=== PATIENT | male | born 1990 | race American Indian/Alaskan Native ===

== ENCOUNTER 2021-06-13 20:20 | Inpatient (IN) | payer SELFPAY ==
--- NOTE | 2021-06-13 21:06 | Emergency Department Report ---
HPI - General Chief Complaint: Chest Pain Time Seen by Provider: 06/13/21 20:52 - HPI HPI: 31-year-old male with history of asthma and recently diagnosed with prediabetes presents complaining of mid substernal chest pain since yesterday. He says the pain is constant, radiates towards the left side of his chest and left shoulder. He describes it as aching. He also reports epigastric abdominal pain. The pain is worsened by taking a deep breath. It is worsened by leaning forward. It is somewhat improved by bearing down to go to the bathroom he took 81 mg of aspirin this morning. 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 He denies any associated headache, vision change, fever, back pain, cough, shortness of breath, nausea/vomiting, focal weakness, sensory changes, or any other complaints. He is not vaccinated against COVID-19. ED Past Medical Hx - Past Medical History Previous Medical History?: Yes Hx Asthma: Yes Additional medical history: Pre Diabetic - Surgical History Hx Appendectomy: Yes Additional Surgical History: nose - Family History Family history: no significant - Social History Smoking Status: Never Smoker Substance Use Type: None Other Social History: Drinks four 20 ounce red bull drinks per day. ED Review of Systems ROS: Stated complaint: CHEST/STOMACH PAIN Other details as noted in HPI Comment: All other systems reviewed and negative Constitutional: denies: chills, fever Eyes: denies: eye pain, vision change ENT: denies: throat pain, congestion Respiratory: denies: cough, shortness of breath Cardiovascular: chest pain. denies: palpitations, edema Gastrointestinal: abdominal pain. denies: nausea, vomiting, diarrhea Genitourinary: denies: dysuria, frequency Musculoskeletal: denies: back pain, arthralgia Skin: denies: rash, lesions Neurological: denies: headache, weakness, numbness, confusion Hematological/Lymphatic: denies: easy bleeding Physical Exam - Physical Exam Vital Signs: Vital Signs 06/13/21 20:48 Temperature 98.2 F Pulse Rate 95 H Respiratory 20 Rate Blood Pressure 152/95 O2 Sat by Pulse 99 Oximetry Physical Exam: GENERAL: Obese male in moderate distress. Diaphoretic. HEAD: Normocephalic. No obvious signs of trauma. ENT: Moist mucous membranes. EYES: Extraocular movements are intact. Pupils are equal round and reactive to light bilaterally NECK: Supple. Full ROM is intact. Trachea is midline. LUNGS: Tachypneic but not in respiratory distress. Equal chest rise bilaterally. Clear to auscultation bilaterally. I do not appreciate any wheezes, rales, or rhonchi. CARDIOVASCULAR: Regular rate and rhythm. No murmurs or rubs. VASCULAR: Cap refill < 2 seconds ABDOMEN: Abdomen is soft and nondistended. There is significant tenderness to palpation of the epigastrium with voluntary guarding. There is no involuntary guarding or rebound tenderness. SKIN: Skin is warm and diaphoretic NEURO: Patient is awake, alert, and oriented. inside sales supervisor II-XII grossly intact. No focal deficits. Normal motor and sensory exam throughout. Normal speech. MUSCULOSKELETAL: No obvious deformities. No significant tenderness. Normal ROM throughout. BACK/SPINE: No costovertebral angle tenderness. ED Course Vital Signs 06/13/21 20:48 Temperature 98.2 F Pulse Rate 95 H Respiratory 20 Rate Blood Pressure 152/95 O2 Sat by Pulse 99 Oximetry ED Medical Decision Making - Lab Data Result diagrams: 06/13/21 22:39 06/13/21 21:08 Lab Results 06/13/21 06/13/21 06/13/21 Range/Units 21:08 21:08 21:08 WBC 10.0 (4.5-11.0) K/mm3 RBC 6.24 H (3.65-5.03) M/mm3 Hgb 15.0 (11.8-15.2) gm/dl Hct 47.9 H (35.5-45.6) % MCV 77 L (84-94) fl MCH 24 L (28-32) pg MCHC 31 L (32-34) % RDW 16.7 H (13.2-15.2) % Plt Count 190 (140-440) K/mm3 Baso % (Auto) [employer] Police Officer PT 12.7 (12.2-14.9) Sec. INR 0.86 L (0.87-1.13) APTT 24.5 (24.2-36.6) Sec. D-Dimer 211.70 (0-234) ng/mlDDU Sodium 136 L (137-145) mmol/L Potassium 3.8 (3.6-5.0) mmol/L Chloride 99.7 (98-107) mmol/L Carbon Dioxide 23 (22-30) mmol/L Anion Gap 17 mmol/L BUN 7 L (9-20) mg/dL Creatinine 1.3 (0.8-1.3) mg/dL Estimated GFR > 60 ml/min BUN/Creatinine Ratio 5 % Glucose 96 (75-100) mg/dL Calcium 9.6 (8.4-10.2) mg/dL Magnesium (1.7-2.3) mg/dL Total Bilirubin (0.1-1.2) mg/dL Direct Bilirubin (0-0.2) mg/dL Indirect Bilirubin mg/dL AST (5-40) units/L ALT (7-56) units/L Alkaline Phosphatase (35-129) units/L Troponin T 0.619 H* (0.00-0.029) ng/mL NT-Pro-B Natriuret Pep (0-450) pg/mL Total Protein (6.3-8.2) g/dL Albumin (3.9-5) g/dL Albumin/Globulin Ratio % Triglycerides 114 (2-149) mg/dL Cholesterol 245 H (50-199) mg/dL LDL Cholesterol Direct 178 H (50-130) mg/dL HDL Cholesterol 48 (40-59) mg/dL Cholesterol/HDL Ratio 5.10 % Lipase 33 (13-60) units/L 06/13/21 06/13/21 06/13/21 Range/Units 21:08 22:39 22:39 WBC (4.5-11.0) K/mm3 RBC (3.65-5.03) M/mm3 Hgb 14.7 (11.8-15.2) gm/dl Hct 45.9 H (35.5-45.6) % MCV (84-94) fl MCH (28-32) pg MCHC (32-34) % RDW (13.2-15.2) % Plt Count 177 (140-440) K/mm3 Baso % (Auto) PT (12.2-14.9) Sec. INR (0.87-1.13) APTT (24.2-36.6) Sec. D-Dimer (0-234) ng/mlDDU Sodium (137-145) mmol/L Potassium (3.6-5.0) mmol/L Chloride (98-107) mmol/L Carbon Dioxide (22-30) mmol/L Anion Gap mmol/L BUN (9-20) mg/dL Creatinine (0.8-1.3) mg/dL Estimated GFR ml/min BUN/Creatinine Ratio % Glucose (75-100) mg/dL Calcium (8.4-10.2) mg/dL Magnesium 1.80 (1.7-2.3) mg/dL Total Bilirubin 0.50 (0.1-1.2) mg/dL Direct Bilirubin < 0.2 (0-0.2) mg/dL Indirect Bilirubin 0.3 mg/dL AST 34 (5-40) units/L ALT 36 (7-56) units/L Alkaline Phosphatase 58 (35-129) units/L Troponin T 0.616 H* (0.00-0.029) ng/mL NT-Pro-B Natriuret Pep 384.4 (0-450) pg/mL Total Protein 6.9 (6.3-8.2) g/dL Albumin 4.5 (3.9-5) g/dL Albumin/Globulin Ratio 1.9 % Triglycerides (2-149) mg/dL Cholesterol (50-199) mg/dL LDL Cholesterol Direct (50-130) mg/dL HDL Cholesterol (40-59) mg/dL Cholesterol/HDL Ratio % Lipase (13-60) units/L // Range/Units 22:39 WBC (4.5-11.0) K/mm3 RBC (3.65-5.03) M/mm3 Hgb (11.8-15.2) gm/dl Hct (35.5-45.6) % MCV (84-94) fl MCH (28-32) pg MCHC (32-34) % RDW (13.2-15.2) % Plt Count (140-440) K/mm3 Baso % (Auto) PT 12.8 (12.2-14.9) Sec. INR 0.87 (0.87-1.13) APTT 25.0 (24.2-36.6) Sec. D-Dimer (0-234) ng/mlDDU Sodium (137-145) mmol/L Potassium (3.6-5.0) mmol/L Chloride (98-107) mmol/L Carbon Dioxide (22-30) mmol/L Anion Gap mmol/L BUN (9-20) mg/dL Creatinine (0.8-1.3) mg/dL Estimated GFR ml/min BUN/Creatinine Ratio % Glucose (75-100) mg/dL Calcium (8.4-10.2) mg/dL Magnesium (1.7-2.3) mg/dL Total Bilirubin (0.1-1.2) mg/dL Direct Bilirubin (0-0.2) mg/dL Indirect Bilirubin mg/dL AST (5-40) units/L ALT (7-56) units/L Alkaline Phosphatase (35-129) units/L Troponin T (0.00-0.029) ng/mL NT-Pro-B Natriuret Pep (0-450) pg/mL Total Protein (6.3-8.2) g/dL Albumin (3.9-5) g/dL Albumin/Globulin Ratio % Triglycerides (2-149) mg/dL Cholesterol (50-199) mg/dL LDL Cholesterol Direct (50-130) mg/dL HDL Cholesterol (40-59) mg/dL Cholesterol/HDL Ratio % Lipase (13-60) units/L - EKG Data -: EKG Interpreted by Or - EKG Data 06/14/21 00:20 Normal sinus rhythm. Normal axis. Normal intervals. No ectopy. There is approximately [address] elevation noted in leads II, III, and aVF and [address] elevation in V3-V5. There are no clear reciprocal changes noted. There are no significant T wave changes. In discussion with assembler dry cell and battery Dr. Yoandy Izaguirre does not represent STEMI - Radiology Data Radiology results: report reviewed - Medical Decision Making 31-year-old male with history of asthma presents complaining of mid substernal chest pain since yesterday. The pain is constant, worsened by taking a deep breath or leaning forward. It is partially relieved by bearing down to go to the bathroom. He denies any associated shortness of breath, cough, fever, or other ACS symptoms. He is afebrile and with normal vital signs other than mildly elevated blood pressure in the 150 systolic. On physical examination, he is in moderate distress and is diaphoretic and tachypneic. Lungs are clear to auscultation. He has significant tenderness to palpation in the epigastrium. There are no other significant abnormalities on exam. His EKG was obtained in triage and appears to show ST elevations in the inferior and some of the lateral leads but there are no obvious reciprocal changes. I immediately spoke with Dr. Izaguirre, the judicial clerk on-call who reviewed the EKG and states it does not represent a STEMI but that he recommends full work-up with troponins and scans as deemed necessary. Although the EKG abnormalities are concerning for possible ACS, his physical examination reveals significant epigastric tenderness on exam. We will perform CTA of the chest/abdomen/pelvis to assess for evidence of aortic dissection versus AAA versus pneumonia versus other intra thoracic or intra-abdominal abnormality to explain the patient's presentation and EKG changes. We will send a full set of labs and will hold off on giving aspirin/heparin until CTA has been performed. Labs reveal no significant leukocytosis or anemia. Hemoglobin is slightly elevated at 15.0. Creatinine is 1.3 from unknown baseline. There are no significant electrolyte abnormalities. BNP is negative. Troponin is positive at 0.619. Given the positive troponin I spoke again with Dr. Izaguirre of cardiology who recommended giving a heparin bolus and putting the patient on heparin drip. He says he will further evaluate the patient and provide further recommendations in full consultation tomorrow. CTA of the chest/abdomen/pelvis shows no evidence of dissection, AAA, or other intra thoracoabdominal abnormality. We will give 325 of aspirin and initiate heparin protocol. On repeat assessment, the patient is now more comfortable in the hospital bed. He reports that his chest pain has almost entirely resolved after going to CT scan and vomiting once. Vitals are stable. I explained to the patient the results of the diagnostic test including elevated troponin and the concern for possible ACS versus myocarditis versus pericarditis versus other diagnosis. I explained the need for admission to the hospital for further monitoring, treatment, and consultation with specialist. The patient expressed understanding and agreement with this plan of care I spoke with Dr. Rogers the on-call hospitalist regarding the case who accepts the patient for admission and will assume care. Critical Care Time: Yes Critical care time in (mins) excluding proc time.: 40 Critical care attestation.: If time is entered above; I have spent that time in minutes in the direct care of this critically ill patient, excluding procedure time. Critical care time was spent in the evaluation/assessment, work-up, and management of NSTEMI requiring initiation of a heparin drip and consultation with specialist as well as extensive discussion with the patient and repeat assessment and reevaluation. ED Disposition Clinical Impression: NSTEMI (non-ST elevated myocardial infarction) Disposition: 09 ADMITTED INPATIENT Is pt being admited?: Yes Condition: Stable
[2021-06-13 21:26] LABS: Hematocrit 47.9 % (35.5-45.6); Mean Corpuscular HGB Conc 31 % (32-34); Mean Corpuscular Volume 77 fl (84-94); Platelet Count 190 K/mm3 (140-440); Red Blood Count 6.24 M/mm3 (3.65-5.03); Red Cell Distribution Width 16.7 % (13.2-15.2)
[2021-06-13 21:35] LABS: INR 0.86 (0.87-1.13)
[2021-06-13 21:36] LABS: Partial Thromboplastin Time 24.5 Sec. (24.2-36.6)
[2021-06-13 21:40] LABS: BUN/Creatinine Ratio 5; Blood Urea Nitrogen 7 mg/dL (9-20); Calcium 9.6 mg/dL (8.4-10.2); Hemolysis Index 14
[2021-06-13 21:42] LABS: Alanine Aminotransferase 36 units/L (7-56); Albumin 4.5 g/dL (3.9-5)
[2021-06-13 21:45] LABS: Bilirubin,Direct < 0.2 mg/dL (0-0.2)
[2021-06-13 21:59] LABS: HDL Cholesterol 48 mg/dL (40-59); LDL Cholesterol,Direct 178 mg/dL (50-130)
--- NOTE | 2021-06-13 22:01 | XRay Report ---
CHEST 1 VIEW 06/13/2021 9:44 PM INDICATION / CLINICAL INFORMATION: Chest Pain. COMPARISON: None available. FINDINGS: SUPPORT DEVICES: None. HEART / MEDIASTINUM: No significant abnormality. LUNGS / PLEURA: No significant pulmonary or pleural abnormality. No pneumothorax. ADDITIONAL FINDINGS: No significant additional findings. IMPRESSION: 1. No acute findings. Signer Name: Wenceslao Kohler MD Signed: 06/13/2021 9:56 PM Workstation Name: [id number]
[2021-06-13] MEDS ORDERED: HEPARIN 10,000 UNITS/10 ML VIAL IV PRN (22:02)
[2021-06-13] MEDS ORDERED: HEPARIN 10,000 UNITS/10 ML VIAL IV ONE (22:02)
--- NOTE | 2021-06-13 22:04 | Cat Scan Report ---
CTA CHEST, ABDOMEN, AND PELVIS WITH CONTRAST INDICATION / CLINICAL INFORMATION: rule out dissection. Chest pain. Positive troponin. TECHNIQUE: Axial CT images were obtained through the chest, abdomen, and pelvis before and after inje ction of 100 mL Omnipaque 350 IV contrast. 3 plane MIP and/or 3D reconstructions were produced. All C T scans at this location are performed using CT dose reduction for ALARA by means of automated exposu re control. COMPARISON: None available. FINDINGS: HEART: No significant abnormality. CORONARY ARTERY CALCIFICATION: Absent -- None. THORACIC AORTA: No significant abnormality. GREAT VESSELS: No significant abnormality. PULMONARY ARTERIES: No significant abnormality. ADDITIONAL CHEST FINDINGS: No significant abnormality. ABDOMINAL AORTA: No significant abnormality. RENAL ARTERIES: No significant abnormality. CELIAC ARTERY: No significant abnormality. SUPERIOR MESENTERIC ARTERY: No significant abnormality. INFERIOR MESENTERIC ARTERY: No significant abnormality. RIGHT ILIAC ARTERIES: No significant abnormality.. LEFT ILIAC ARTERIES: No significant abnormality.. ADDITIONAL ABDOMINOPELVIC FINDINGS: Liver is mildly enlarged and hypodense characteristic of fatty in filtration. No acute process in the abdomen or pelvis. SKELETAL STRUCTURES: No significant abnormality. IMPRESSION: 1. No aortic dissection or other acute abnormality of the thoracoabdominal aorta. 2. No acute process in the chest, abdomen, or pelvis. 3. Hepatic steatosis. Signer Name: Wenceslao Kohler MD Signed: 06/13/2021 10:00 PM Workstation Name: [id number]
[2021-06-13] MEDS ORDERED: ASPIRIN 81 MG TAB CHEW PO ONE (22:08)
[2021-06-13] MEDS ORDERED: HEPARIN/ 0.45% NACL DRIP 25,000 UNIT/500 ML BAG IV SCH (23:00)
[2021-06-13 23:07] LABS: Hematocrit 45.9 % (35.5-45.6); Hemoglobin 14.7 gm/dl (11.8-15.2)
[2021-06-13 23:23] LABS: INR 0.87 (0.87-1.13)
[2021-06-13] MEDS ORDERED: NITROGLYCERIN 0.4 MG TAB SUBL SL PRN (23:48)
[2021-06-13] MEDS ORDERED: MORPHINE 4 MG/1 ML INJ IV PRN (23:48)
[2021-06-13] MEDS ORDERED: ONDANSETRON 4 MG/2 ML INJ IV PRN (23:48)
[2021-06-13] MEDS ORDERED: traMADol 50 MG TAB PO PRN (23:48)
[2021-06-13] MEDS ORDERED: ACETAMINOPHEN 325 MG TAB PO PRN ×2 (23:48)
[2021-06-13] MEDS ORDERED: MAGNESIUM HYDROXIDE (MOM) ORAL LIQD UDC PO PRN (23:48)
[2021-06-13] MEDS ORDERED: MORPHINE 2 MG/1 ML INJ IV PRN ×2 (23:48)
--- NOTE | 2021-06-14 | History and Physical Report ---
History of Present Illness Date of examination: 06/13/21 Date of admission: 06/13/2021 Chief complaint: Chest Pain History of present illness: 31-year-old male with known history of asthma and also recently diagnosed with prediabetes presents to the emergency room today complaining of midsternal chest pain which has been ongoing since yesterday. Pain is said to be constant and radiating towards the left side of his chest and left shoulder. Pain is made worse by taking a deep breath and also by movement. He also indicates that he feels the pain improves when he bears down. He denies any fever or chills, no headache or dizziness and no diaphoresis. Patient denies any nausea or vomiting, no abdominal pain, no hematuria or dysuria. 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 Work-up in the emergency room today, CTA of the chest shows no acute findings. EKG shows some ST elevation in the inferior and lateral leads. Blood Bank Custodian Dr. Izaguirre was consulted by the ER physician. Patient was started on aspirin and also on heparin drip. Past History Past Medical History: other (Asthma) Past Surgical History: Other (Nose) Social history: no significant social history Family history: no significant family history Medications and Allergies Allergies Allergy/AdvReac Type Severity Reaction Status Date / Time Penicillins Allergy Hives Verified 06/13/21 20:57 Active Meds: Active Medications Acetaminophen (Acetaminophen 325 Mg Tab) 650 mg PO Q4H PRN PRN Reason: Pain MILD(1-3)/Fever >100.5/BERGERON Acetaminophen (Acetaminophen 325 Mg Tab) 650 mg PO Q6H PRN PRN Reason: Pain, Mild (1-3) Aspirin (Aspirin Ec 325 Mg Tab) 325 mg PO QDAY YAZAN Heparin Sodium (Porcine) (Heparin 10,000 Units/10 Ml Vial) 4,000 unit 40 unit/kg (4000 unit) IV Q6H PRN PRN Reason: Anti-Xa Assay < 0.1 units/ml Heparin Sodium/Sodium Chloride (Heparin/ 0.45% Nacl-25,000 Unit/500 Ml) 25,000 unit in 500 mls @ 20 mls/hr IV TITRATE YAZAN; Protocol Last Admin: 06/13/21 22:51 Dose: 1,000 units/hr, 20 mls/hr Magnesium Hydroxide (Magnesium Hydroxide (Mom) Oral Liqd Udc) 30 ml PO Q4H PRN PRN Reason: Constipation Morphine Sulfate (Morphine 2 Mg/1 Ml Inj) 2 mg IV Q4H PRN PRN Reason: Pain, Moderate (4-6) Morphine Sulfate (Morphine 4 Mg/1 Ml Inj) 4 mg IV Q4H PRN PRN Reason: Pain , Severe (7-10) Morphine Sulfate (Morphine 4 Mg/1 Ml Inj) 2 mg IV Q5MIN PRN PRN Reason: Chest Pain unrelieved by NTG Nitroglycerin (Nitroglycerin 0.4 Mg Tab Subl) 0.4 mg SL Q5M PRN PRN Reason: Chest Pain Ondansetron HCl (Ondansetron 4 Mg/2 Ml Inj) 4 mg IV Q8H PRN PRN Reason: Nausea And Vomiting Sodium Chloride (Sodium Chloride 0.9% 10 Ml Flush Syringe) 10 ml IV BID YAZAN Sodium Chloride (Sodium Chloride 0.9% 10 Ml Flush Syringe) 10 ml IV PRN PRN PRN Reason: LINE FLUSH Sodium Chloride (Sodium Chloride 0.9% 10 Ml Flush Syringe) 10 ml IV PRN PRN PRN Reason: LINE FLUSH Tramadol HCl (Tramadol 50 Mg Tab) 50 mg PO Q6H PRN PRN Reason: Pain, Moderate (4-6) Review of Systems Constitutional: no fever, no chills Ears, nose, mouth and throat: no nasal congestion, no sore throat Cardiovascular: chest pain, no palpitations Respiratory: shortness of breath, no cough Gastrointestinal: no abdominal pain, no nausea, no vomiting, no diarrhea Genitourinary Male: no dysuria, no hematuria, no flank pain Musculoskeletal: no neck pain, no low back pain Integumentary: no rash, no pruritis Neurological: no headaches, no confusion Psychiatric: no anxiety, no depression Endocrine: no polyphagia, no polydipsia, no polyuria, no nocturia Exam - Constitutional Vitals: Temp Pulse Resp BP Pulse Ox 98.2 F 75 15 142/93 97 06/13/21 20:48 06/13/21 23:00 06/13/21 23:00 06/13/21 23:00 06/13/21 23:00 General appearance: Present: no acute distress, well-nourished, obese - EENT Eyes: Present: PERRL, EOM intact. Absent: scleral icterus ENT: hearing intact, clear oral mucosa, dentition normal - Neck Neck: Present: supple, normal ROM - Respiratory Respiratory effort: normal Respiratory: bilateral: CTA - Cardiovascular Rhythm: regular Heart Sounds: Present: S1 & S2. Absent: systolic murmur, diastolic murmur - Extremities Extremities: no ischemia, pulses intact, pulses symmetrical, No edema, normal temperature, normal color, Full ROM Peripheral Pulses: within normal limits - Abdominal General gastrointestinal: Present: soft, non-tender, non-distended, normal bowel sounds. Absent: mass - Integumentary Integumentary: Present: clear, warm, dry. Absent: rash - Musculoskeletal Musculoskeletal: strength equal bilaterally - Psychiatric Psychiatric: appropriate mood/affect, intact judgment & insight, memory intact, cooperative - Neurologic Neurologic: CNII-XII intact, no focal deficits, moves all extremities HEART Score - HEART Score History: Moderately suspicious EKG: Significant ST-depression Age: < 45 Risk factors: 1-2 risk factors Troponin: Troponin T 0.616 ng/mL (0.00-0.029) H* 06/13/21 22:39 Troponin: 1-3x normal limit HEART Score: 5 Results - Labs CBC & Chem 7: 06/13/21 22:39 06/13/21 21:08 Labs: Abnormal lab results 06/13/21 06/13/21 06/13/21 Range/Units 21:08 21:08 21:08 RBC 6.24 H (3.65-5.03) M/mm3 Hct 47.9 H (35.5-45.6) % MCV 77 L (84-94) fl MCH 24 L (28-32) pg MCHC 31 L (32-34) % RDW 16.7 H (13.2-15.2) % INR 0.86 L (0.87-1.13) Sodium 136 L (137-145) mmol/L BUN 7 L (9-20) mg/dL Troponin T 0.619 H* (0.00-0.029) ng/mL Cholesterol 245 H (50-199) mg/dL LDL Cholesterol Direct 178 H (50-130) mg/dL 06/13/21 06/13/21 Range/Units 22:39 22:39 RBC (3.65-5.03) M/mm3 Hct 45.9 H (35.5-45.6) % MCV (84-94) fl MCH (28-32) pg MCHC (32-34) % RDW (13.2-15.2) % INR (0.87-1.13) Sodium (137-145) mmol/L BUN (9-20) mg/dL Troponin T 0.616 H* (0.00-0.029) ng/mL Cholesterol (50-199) mg/dL LDL Cholesterol Direct (50-130) mg/dL Assessment and Plan - Patient Problems (1) Chest pain Current Visit: Yes Status: Acute Plan to address problem: Patient to be ruled out for acute coronary syndrome. We will check serial cardiac enzymes. Patient started on aspirin, sublingual nitroglycerin and IV morphine as needed for chest pain. He has also been commenced on heparin drip. We will await further evaluation and recommendation by cardiology. (2) DVT prophylaxis Current Visit: Yes Status: Acute Plan to address problem: Patient on heparin drip. (3) Full code status Current Visit: Yes Status: Acute Plan to address problem: Patient is full code.
[2021-06-14 00:53] LABS: Bilirubin,Urine NEG (Negative); Blood,Urine NEG (Negative); Color,Urine Straw (Yellow); Protein,Urine <15 mg/dL mg/dL (Negative); RBC,Urine < 1.0 /HPF (0.0-6.0); Urobilinogen,Urine < 2.0 mg/dL (<2.0); WBC,Urine < 1.0 /HPF (0.0-6.0)
[2021-06-14 00:58] LABS: Amphetamine Screen,Urine PRESUMPTIVE NEGATIVE; Benzodiazepines Screen,Urine PRESUMPTIVE NEGATIVE; Cannabinoid Screen,Urine PRESUMPTIVE POSITIVE; Cocaine Screen,Urine PRESUMPTIVE NEGATIVE; Methadone Screen,Urine PRESUMPTIVE NEGATIVE; Opiate Screen,Urine PRESUMPTIVE NEGATIVE
[2021-06-14 01:47] LABS: Anisocytosis 1+; Band Neutrophils # (Manual) 0.1 K/mm3; Basophils % (Manual) 0 % (0.0-1.8); Platelet Estimate Consistent w Auto; Total Cells Counted 100
[2021-06-14 06:34] LABS: Basophils % (Auto) 0.3 % (0.0-1.8); Eosinophils # (Auto) 0.2 K/mm3 (0.0-0.4); Eosinophils % (Auto) 2.5 % (0.0-4.3); Hematocrit 45.7 % (35.5-45.6); Hemoglobin 14.3 gm/dl (11.8-15.2); Lymphocytes # (Auto) 2.2 K/mm3 (1.2-5.4); Lymphocytes % (Auto) 28.3 % (13.4-35.0); Mean Corpuscular HGB Conc 31 % (32-34); Mean Corpuscular Volume 77 fl (84-94); Monocytes # (Auto) 1.1 K/mm3 (0.0-0.8); Monocytes % (Auto) 14.1 % (0.0-7.3); Platelet Count 181 K/mm3 (140-440); Red Blood Count 5.93 M/mm3 (3.65-5.03); Red Cell Distribution Width 16.4 % (13.2-15.2)
[2021-06-14 06:40] LABS: INR 0.93 (0.87-1.13)
[2021-06-14 06:46] LABS: BUN/Creatinine Ratio 7; Blood Urea Nitrogen 7 mg/dL (9-20); Calcium 8.9 mg/dL (8.4-10.2); Hemolysis Index 3
--- NOTE | 2021-06-14 08:51 | Electrocardiograph Report ---
[facility] Test Date: 2021-06-14 Test Time: 07:54:15 Pat Name: ALEJA BINGHAM Department: Room: A477 1 Gender: M Lacing Cutter: MONIK : 1990 Requested By: IRIS NEVILLE Order Number: [id number] Reading MD: Yoandy Izaguirre Measurements Intervals [place] Rate: 74 P: 21 NV: 166 QRS: 20 QRSD: 86 T: 36 QT: 354 QTc: 391 Interpretive Statements Sinus rhythm Atrial premature complexes in couplets Diffuse mild ST elevation Compared to ECG 06/13/2021 20:42:10 Atrial premature complex(es) now present Sinus arrhythmia no longer present Myocardial infarct finding still present Electronically Signed On 06-14-2021 8:51:28 EST by Yoandy Izaguirre
[2021-06-14] MEDS ORDERED: fentaNYL 100 MCG/2 ML INJ ONE (08:52)
[2021-06-14] MEDS ORDERED: MIDAZOLAM 2 MG/2 ML INJ ONE (08:52)
[2021-06-14] MEDS ORDERED: HEPARIN 10,000 UNITS/10 ML VIAL ONE (08:52)
[2021-06-14] MEDS ORDERED: VERAPAMIL 5 MG/2 ML INJ ONE (08:52)
[2021-06-14] MEDS ORDERED: LIDOCAINE (2%) 20 MG/1 ML VIAL 20 ML MDV INFILTRATI ONE (08:53)
[2021-06-14] MEDS ORDERED: NITROGLYCERIN SYRINGE 3 ML ONE (08:53)
[2021-06-14] MEDS ORDERED: HEPARIN/NS 5000 UNIT/500ML 1,000 ML IR ONE (08:54)
[2021-06-14] MEDS ORDERED: SODIUM CHLORIDE 0.9% 500 ML 500 ML IV SCH (09:00)
[2021-06-14] MEDS ORDERED: SODIUM CHLORIDE 0.9% 500 ML 500 ML ONE (09:10)
--- NOTE | 2021-06-14 10:21 | Consultation ---
DATE OF CONSULTATION: 06/14/2021 REFERRING PHYSICIAN: ER physician. REASON FOR CONSULTATION: Advice and opinion regarding chest pain, abnormal troponin, abnormal EKG. HISTORY OF PRESENT ILLNESS: The patient is a pleasant 31-year-old -[place] gentleman with a history of asthma and prediabetes, presents to the Emergency Room with sharp chest pain. He works as a truck driver helper. Has seen a physician in [place], but was coming from [place]. Chest pain was resolved in the Emergency Room. Abnormal EKG is noted. No prior history of cardiac history. Apparently does see a physician regularly. No family history of premature heart disease. He smokes marijuana. No tobacco abuse. No illicit drug use. He is currently seen on telemetry feeling better, has no chest pain, no syncope, presyncope, feels okay. PAST MEDICAL HISTORY: Asthma. PAST SURGICAL HISTORY: Unremarkable. SOCIAL HISTORY: As aforementioned. ALLERGIES: No known drug, food or environmental allergies. REVIEW OF SYSTEMS: As per HPI. INPATIENT AND OUTPATIENT MEDICATIONS: Reviewed. PHYSICAL EXAMINATION: VITAL SIGNS: Blood pressure is 130/70. The patient is on tele in the 70s and 80s. No dysrhythmias. O2 sat is 100% on room air. GENERAL: This is a young -[place]ong[place] gentleman in no apparent distress, oriented x 3. HEENT: Sclerae are anicteric. PERRL. NECK: Supple, no masses, no JVD. CHEST: Clear to auscultation bilaterally. Good air movement. CARDIOVASCULAR: Regular S1, S2. ABDOMEN: Soft, nontender, nondistended. Normoactive bowel sounds in 4 quadrants. No mass or bruits. EXTREMITIES: No cyanosis, clubbing, edema. Good peripheral pulses. SKIN: Warm, dry and intact. No rashes. LABORATORY DATA: EKG reveals mild diffuse ST elevation, questionable ME elevation in AVR. No reciprocal changes. EKG from this morning is perhaps more pronounced with diffuse ST elevation. CT abdomen and pelvis and chest were unremarkable. WBC is 7.9, hemoglobin 14.3, hematocrit 45, platelets are 181, sodium 137, potassium 3.8, creatinine is 1. Troponin went from 0.61 to 0.52. UDS is positive for marijuana. ASSESSMENT: In summary, the patient is a 31-year-old -[place] gentleman who presents with chest pain with typical and atypical features. Also with an abnormal EKG with diffuse ST elevation that does not appear consistent with acute ST elevation myocardial infarction. Nonetheless, given his chest pain, abnormal troponins, he likely is a non-ST elevation myocardial infarction. He remains stable. He is on IV heparin, aspirin already loaded. Choices are discussed with him. He elected to proceed with left heart catheterization. Risks, benefits and alternatives discussed. We will also check an echocardiogram. Further plans contingent on these results. Thank you for this consultation. I would be happy following with you. TID: [id number] RECEIPT: [id number] CINTIA/AVERY
--- NOTE | 2021-06-14 10:46 | Progress Note ---
Assessment and Plan Assessment and plan: #Acute coronary syndrome rule out #NSTEMI #Hyperlipidemia -Troponin 0.616-> 0.524 -Heparin GTT -Continue aspirin and statin; as needed nitroglycerin -Cardiology following, assistance appreciated -Cardiac cath to be performed today -Echocardiogram results pending #Asthma -Controlled History Interval history: No acute events overnight. Patient reports resolution of chest pain. Currently having no shortness of breath, palpitations or chest discomfort. Hospitalist Physical - Physical exam Narrative exam: GENERAL: Obese. In no acute distress. HEENT: Normocephalic. Atraumatic. NECK: Supple. CHEST/LUNGS: CTAB on room air HEART/CARDIOVASCULAR: RRR. No murmur, rubs or gallops appreciated. ABDOMEN: +BS. NT/ND. SKIN: No rashes noted. NEURO: No focal motor deficit. Follows all commands. EXTREMITIES: No cyanosis, clubbing or edema. PSYCH: Cooperative. - Constitutional Vitals: Temp Pulse Resp BP Pulse Ox 98.7 F 70 16 127/77 97 06/14/21 10:30 06/14/21 10:30 06/14/21 10:30 06/14/21 10:30 06/14/21 10:30 General appearance: Present: no acute distress, well-nourished, obese HEART Score - HEART Score EKG: Significant ST-depression Age: < 45 Risk factors: 1-2 risk factors Troponin: Troponin T 0.524 ng/mL (0.00-0.029) H* 06/14/21 05:32 Troponin: 1-3x normal limit Results - Labs CBC & Chem 7: 06/14/21 05:32 06/14/21 05:32 Labs: Laboratory Last Values WBC 7.9 K/mm3 (4.5-11.0) 06/14/21 05:32 RBC 5.93 M/mm3 (3.65-5.03) H 06/14/21 05:32 Hgb 14.3 gm/dl (11.8-15.2) 06/14/21 05:32 Hct 45.7 % (35.5-45.6) H 06/14/21 05:32 MCV 77 fl (84-94) L 06/14/21 05:32 MCH 24 pg (28-32) L 06/14/21 05:32 MCHC 31 % (32-34) L 06/14/21 05:32 RDW 16.4 % (13.2-15.2) H 06/14/21 05:32 Plt Count 181 K/mm3 (140-440) 06/14/21 05:32 Lymph % (Auto) 28.3 % (13.4-35.0) 06/14/21 05:32 [place] % (Auto) 14.1 % (0.0-7.3) H 06/14/21 05:32 Eos % (Auto) 2.5 % (0.0-4.3) 06/14/21 05:32 Baso % (Auto) 0.3 % (0.0-1.8) 06/14/21 05:32 Lymph # (Auto) 2.2 K/mm3 (1.2-5.4) 06/14/21 05:32 [place] # (Auto) 1.1 K/mm3 (0.0-0.8) H 06/14/21 05:32 Eos # (Auto) 0.2 K/mm3 (0.0-0.4) 06/14/21 05:32 Baso # (Auto) 0.0 K/mm3 (0.0-0.1) 06/14/21 05:32 Add Manual Diff Complete 06/13/21 21:08 Total Counted 100 06/13/21 21:08 Seg Neutrophils % 54.8 % (40.0-70.0) 06/14/21 05:32 Seg Neuts % (Manual) 64.0 % (40.0-70.0) 06/13/21 21:08 Band Neutrophils % 1.0 % 06/13/21 21:08 Lymphocytes % (Manual) 25.0 % (13.4-35.0) 06/13/21 21:08 Reactive Lymphs % (Man) 0 % 06/13/21 21:08 Monocytes % (Manual) 8.0 % (0.0-7.3) H 06/13/21 21:08 Eosinophils % (Manual) 2.0 % (0.0-4.3) 06/13/21 21:08 Basophils % (Manual) 0 % (0.0-1.8) 06/13/21 21:08 Metamyelocytes % 0 % 06/13/21 21:08 Myelocytes % 0 % 06/13/21 21:08 Promyelocytes % 0 % 06/13/21 21:08 Blast Cells % 0 % 06/13/21 21:08 Nucleated RBC % Not Reportable 06/13/21 21:08 Seg Neutrophils # 4.4 K/mm3 (1.8-7.7) 06/14/21 05:32 Seg Neutrophils # Man 6.4 K/mm3 (1.8-7.7) 06/13/21 21:08 Band Neutrophils # 0.1 K/mm3 06/13/21 21:08 Lymphocytes # (Manual) 2.5 K/mm3 (1.2-5.4) 06/13/21 21:08 Abs React Lymphs (Man) 0.0 K/mm3 06/13/21 21:08 Monocytes # (Manual) 0.8 K/mm3 (0.0-0.8) 06/13/21 21:08 Eosinophils # (Manual) 0.2 K/mm3 (0.0-0.4) 06/13/21 21:08 Basophils # (Manual) 0.0 K/mm3 (0.0-0.1) 06/13/21 21:08 Metamyelocytes # 0.0 K/mm3 06/13/21 21:08 Myelocytes # 0.0 K/mm3 06/13/21 21:08 Promyelocytes # 0.0 K/mm3 06/13/21 21:08 Blast Cells # 0.0 K/mm3 06/13/21 21:08 WBC Morphology Not Reportable 06/13/21 21:08 Hypersegmented Neuts Not Reportable 06/13/21 21:08 Hyposegmented Neuts Not Reportable 06/13/21 21:08 Hypogranular Neuts Not Reportable 06/13/21 21:08 Smudge Cells Not Reportable 06/13/21 21:08 Toxic Granulation Not Reportable 06/13/21 21:08 Toxic Vacuolation Not Reportable 06/13/21 21:08 Dohle Bodies Not Reportable 06/13/21 21:08 Pelger-Huet Anomaly Not Reportable 06/13/21 21:08 Rosa Rods Not Reportable 06/13/21 21:08 Platelet Estimate Consistent w auto 06/13/21 21:08 Clumped Platelets Not Reportable 06/13/21 21:08 Plt Clumps, EDTA Not Reportable 06/13/21 21:08 Large Platelets Not Reportable 06/13/21 21:08 Giant Platelets Not Reportable 06/13/21 21:08 Platelet Satelliting Not Reportable 06/13/21 21:08 Plt Morphology Comment Not Reportable 06/13/21 21:08 RBC Morphology Not Reportable 06/13/21 21:08 Dimorphic RBCs Not Reportable 06/13/21 21:08 Polychromasia Not Reportable 06/13/21 21:08 Hypochromasia Not Reportable 06/13/21 21:08 Poikilocytosis Not Reportable 06/13/21 21:08 Anisocytosis 1+ 06/13/21 21:08 Microcytosis Not Reportable 06/13/21 21:08 Macrocytosis Not Reportable 06/13/21 21:08 Spherocytes Not Reportable 06/13/21 21:08 Pappenheimer Bodies Not Reportable 06/13/21 21:08 Sickle Cells Not Reportable 06/13/21 21:08 Target Cells Not Reportable 06/13/21 21:08 Tear Drop Cells Not Reportable 06/13/21 21:08 Ovalocytes Not Reportable 06/13/21 21:08 Helmet Cells Not Reportable 06/13/21 21:08 Zaidi-Cabool Bodies Not Reportable 06/13/21 21:08 [place] Rings Not Reportable 06/13/21 21:08 Maya Cells Not Reportable 06/13/21 21:08 Bite Cells Not Reportable 06/13/21 21:08 Crenated Cell Not Reportable 06/13/21 21:08 Elliptocytes Not Reportable 06/13/21 21:08 Acanthocytes (Spur) Not Reportable 06/13/21 21:08 Rouleaux Not Reportable 06/13/21 21:08 Hemoglobin C Crystals Not Reportable 06/13/21 21:08 Schistocytes Not Reportable 06/13/21 21:08 Malaria parasites Not Reportable 06/13/21 21:08 Luke Bodies Not Reportable 06/13/21 21:08 Hem Pathologist Commnt No 06/13/21 21:08 PT 13.5 Sec. (12.2-14.9) 06/14/21 05:32 INR 0.93 (0.87-1.13) 06/14/21 05:32 APTT 25.0 Sec. (24.2-36.6) 06/13/21 22:39 D-Dimer 211.70 ng/mlDDU (0-234) 06/13/21 21:08 Heparin Anti-Xa Level < 0.10 U.I./ml (0.3-0.7) L 06/14/21 05:32 Sodium 137 mmol/L (137-145) 06/14/21 05:32 Potassium 3.8 mmol/L (3.6-5.0) 06/14/21 05:32 Chloride 102.0 mmol/L (98-107) 06/14/21 05:32 Carbon Dioxide 21 mmol/L (22-30) L 06/14/21 05:32 Anion Gap 18 mmol/L 06/14/21 05:32 BUN 7 mg/dL (9-20) L 06/14/21 05:32 Creatinine 1.0 mg/dL (0.8-1.3) 06/14/21 05:32 Estimated GFR > 60 ml/min 06/14/21 05:32 BUN/Creatinine Ratio 7 % 06/14/21 05:32 Glucose 112 mg/dL (75-100) H 06/14/21 05:32 Calcium 8.9 mg/dL (8.4-10.2) 06/14/21 05:32 Magnesium 1.80 mg/dL (1.7-2.3) 06/13/21 21:08 Total Bilirubin 0.50 mg/dL (0.1-1.2) 06/13/21 21:08 Direct Bilirubin < 0.2 mg/dL (0-0.2) 06/13/21 21:08 Indirect Bilirubin 0.3 mg/dL 06/13/21 21:08 AST 34 units/L (5-40) 06/13/21 21:08 ALT 36 units/L (7-56) 06/13/21 21:08 Alkaline Phosphatase 58 units/L (35-129) 06/13/21 21:08 Troponin T 0.524 ng/mL (0.00-0.029) H* 06/14/21 05:32 NT-Pro-B Natriuret Pep 384.4 pg/mL (0-450) 06/13/21 21:08 Total Protein 6.9 g/dL (6.3-8.2) 06/13/21 21:08 Albumin 4.5 g/dL (3.9-5) 06/13/21 21:08 Albumin/Globulin Ratio 1.9 % 06/13/21 21:08 Triglycerides 114 mg/dL (2-149) 06/13/21 21:08 Cholesterol 245 mg/dL (50-199) H 06/13/21 21:08 LDL Cholesterol Direct 178 mg/dL (50-130) H 06/13/21 21:08 HDL Cholesterol 48 mg/dL (40-59) 06/13/21 21:08 Cholesterol/HDL Ratio 5.10 % 06/13/21 21:08 Lipase 33 units/L (13-60) 06/13/21 21:08 Urine Color Straw (Yellow) 06/14/21 00:41 Urine Turbidity Clear (Clear) 06/14/21 00:41 Urine pH 8.0 (5.0-7.0) H 06/14/21 00:41 Ur Specific [place] 1.043 (1.003-1.030) H 06/14/21 00:41 Urine Protein <15 mg/dl mg/dL (Negative) 06/14/21 00:41 Urine Glucose (UA) Neg mg/dL (Negative) 06/14/21 00:41 Urine Ketones Neg mg/dL (Negative) 06/14/21 00:41 Urine Blood Neg (Negative) 06/14/21 00:41 Urine Nitrite Neg (Negative) 06/14/21 00:41 Urine Bilirubin Neg (Negative) 06/14/21 00:41 Urine Urobilinogen < 2.0 mg/dL (<2.0) 06/14/21 00:41 Ur Leukocyte Esterase Neg (Negative) 06/14/21 00:41 Urine WBC (Auto) < 1.0 /HPF (0.0-6.0) 06/14/21 00:41 Urine RBC (Auto) < 1.0 /HPF (0.0-6.0) 06/14/21 00:41 Urine Opiates Screen Presumptive negative 06/14/21 00:41 Urine Methadone Screen Presumptive negative 06/14/21 00:41 Ur Barbiturates Screen Presumptive negative 06/14/21 00:41 Ur Phencyclidine Scrn Presumptive negative 06/14/21 00:41 Ur Amphetamines Screen Presumptive negative 06/14/21 00:41 U Benzodiazepines Scrn Presumptive negative 06/14/21 00:41 Urine Cocaine Screen Presumptive negative 06/14/21 00:41 U Marijuana (THC) Screen Presumptive positive 06/14/21 00:41 Drugs of Abuse Note Disclamer 06/14/21 00:41 Ribera/IV: Voiding Method Toilet Active Medications - Current Medications Current Medications: Generic Name Dose Route Start Last Admin Trade Name Freq PRN Reason Stop Dose Admin Acetaminophen 650 mg 06/13/21 23:48 Acetaminophen 325 Mg Tab PO Q4H PRN Pain MILD(1-3)/Fever >100.5/BERGERON Aspirin 325 mg 06/14/21 10:00 Aspirin Ec 325 Mg Tab PO QDAY [facility] Heparin Sodium (Porcine) 4,000 unit 06/13/21 22:02 06/14/21 07:07 Heparin 10,000 Units/10 Ml Vial 40 unit/kg (4000 unit) 4,000 unit IV Administration Q6H PRN Anti-Xa Assay < 0.1 units/ml Heparin Sodium/Sodium Chloride 25,000 unit in 500 mls @ 20 mls/hr 06/13/21 23:00 06/14/21 07:02 Heparin/ 0.45% Nacl-25,000 Unit/500 Ml IV 1,300 units/hr TITRATE YAZAN 26 mls/hr Titration Protocol 1,000 UNITS/HR Sodium Chloride 500 mls @ 50 mls/hr 06/14/21 09:00 Nacl 0.9% 500 Ml IV 06/14/21 18:59 DIRECT YAZAN Magnesium Hydroxide 30 ml 06/13/21 23:48 Magnesium Hydroxide (Mom) Oral Liqd Udc PO Q4H PRN Constipation Morphine Sulfate 2 mg 06/13/21 23:48 Morphine 2 Mg/1 Ml Inj IV Q4H PRN Pain, Moderate (4-6) Morphine Sulfate 4 mg 06/13/21 23:48 06/14/21 00:36 Morphine 4 Mg/1 Ml Inj IV 4 mg Q4H PRN Administration Pain , Severe (7-10) Morphine Sulfate 2 mg 06/13/21 23:48 Morphine 2 Mg/1 Ml Inj IV Q5MIN PRN Chest Pain unrelieved by NTG Nitroglycerin 0.4 mg 06/13/21 23:48 Nitroglycerin 0.4 Mg Tab Subl SL Q5M PRN Chest Pain Ondansetron HCl 4 mg 06/13/21 23:48 Ondansetron 4 Mg/2 Ml Inj IV Q8H PRN Nausea And Vomiting Sodium Chloride 10 ml 06/14/21 10:00 Sodium Chloride 0.9% 10 Ml Flush Syringe IV BID YAZAN Sodium Chloride 10 ml 06/13/21 23:48 Sodium Chloride 0.9% 10 Ml Flush Syringe IV PRN PRN LINE FLUSH Sodium Chloride 10 ml 06/13/21 23:48 Sodium Chloride 0.9% 10 Ml Flush Syringe IV PRN PRN LINE FLUSH Tramadol HCl 50 mg 06/13/21 23:48 Tramadol 50 Mg Tab PO Q6H PRN Pain, Moderate (4-6)
--- NOTE | 2021-06-14 11:43 | Treadmill Report ---
DATE OF SERVICE: 06/14/2021 REFERRING PHYSICIAN: Hospitalist service. INDICATIONS: The patient is a 31-year-old -[place] gentleman with history of prediabetes, hypertension, presented with chest pain with typical and atypical features, abnormal troponin and abnormal EKG with diffuse ST elevation. Risks, benefits and alternatives including medical management discussed at length with the patient. All questions were addressed. The patient would like to proceed. PROCEDURE IN DETAIL: The patient was brought to the cardiac cath lab radiology technologist in a postabsorptive state, prepped and draped in sterile fashion. Selvin's test in right hand is normal. 2 mL of 2% lidocaine used to anesthetize the right wrist. A standard 6-[place] hydrophilic sheath used to cannulate the right radial artery via modified Seldinger technique. All exchanges performed to exchange a J-tip guidewire. JL3.5 catheter was used to engage the left main. No dampening or ventricularization. Cineangiography performed in all projections. JR4 catheter used to cross the valve under fluoroscopic guidance. Left ventriculography performed in the DIMAS and 30-degree PRYDEINIG projections via hand injections, catheter flushed. Manual pullback performed with continuous pressure monitoring. Catheter was in right coronary. No dampening or ventricularization. Cineangiography performed in all projections. Next, catheter removed from the body of wire, sheath removed. Manual pressure used to achieve hemostasis. I directly supervised the administration of moderate sedation with fentanyl and Versed from 9:20 a.m. to 10 a.m. No immediate complications identified. The patient remained in normal sinus rhythm throughout the procedure. On the monitor, the patient has diffuse ST elevation throughout the procedure. He remained chest pain free throughout the procedure. Left heart reveals normal systolic performance, estimated ejection fraction 55-60%. No evidence of aortic stenosis. Aortic pressure of 110/90. LV pressures of 110, LVEDP of 12 mmHg. CORONARY ANATOMY: This is a right dominant system. Right coronary is a moderate sized vessel, courses AV groove, distally bifurcates into posterior descending and posterolateral branches. No significant disease in the right coronary. Scattered luminal irregularities. Left main without significant disease, bifurcates into left circumflex. Left circumflex is a moderate sized vessel, courses AV groove, gives a large OM trunk. No significant disease in the circumflex system. LAD is a moderate-sized vessel, courses anterior intergroove, wraps around the apex. There is slow flow throughout the LAD, has sluggish flow, but no obstructive disease identified. Multiple orthogonal views were imaged, slow flow throughout the LAD and diagonal system, but again no significant obstructive disease identified. CONCLUSIONS: 1. Mild scattered luminal irregularities with diffuse sluggish flow, especially in the LAD, but no obstructive disease identified in this right dominant system. 2. Normal left ventricular function, estimated ejection fraction 55-60%. No evidence of aortic stenosis. 3. Normal LVEDP. Given the sluggish flow, we will initiate high dose statin therapy, aspirin for life. Follow up echocardiogram. This still does not explain his diffuse ST elevation on EKG, questionable. Mild perimyocarditis. The patient is unvaccinated, also check a COVID serologies. His blood pressure remains a bit soft. May consider low dose beta blockade as well. Results of procedure explained to the patient at length. All questions were addressed. We will follow along closely. TID: [id number] RECEIPT: [id number] CINTIA/MIKE RILEY
[2021-06-14] MEDS: ASPIRIN EC 325 MG TAB PO SCH (12:19)
[2021-06-15 06:06] LABS: Hematocrit 46.6 % (35.5-45.6); Hemoglobin 14.9 gm/dl (11.8-15.2)
[2021-06-15 06:27] LABS: BUN/Creatinine Ratio 8; Blood Urea Nitrogen 9 mg/dL (9-20); Calcium 9.7 mg/dL (8.4-10.2); Hemolysis Index 3
--- NOTE | 2021-06-15 09:05 | Electrocardiograph Report ---
[facility] Test Date: 2021-06-15 Test Time: 08:01:41 Pat Name: ALEJA BINGHAM Department: Room: A477 1 Gender: M Department Secretary: charu : 1990 Requested By: GERMAN ROSARIO Order Number: [id number] Reading MD: Yoandy Izaguirre Measurements Intervals [place] Rate: 81 P: 31 [place]: 178 QRS: 15 QRSD: 72 T: 45 QT: 339 QTc: 391 Interpretive Statements Sinus rhythm Inferior infarct, acute Compared to ECG 06/14/2021 07:54:15 Myocardial infarct finding now present Atrial premature complex(es) no longer present ST (T wave) deviation still present Electronically Signed On 06-15-2021 9:05:02 EST by Yoandy Izaguirre
[2021-06-15] MEDS: ASPIRIN EC 325 MG TAB PO SCH (10:44)
--- NOTE | 2021-06-15 14:18 | Progress Note ---
Assessment and Plan Patient is a 31-year-old male past medical history of asthma and prediabetes who presents to the ED with complaint of sharp chest pain with diffuse ST elevation not consistent with STEMI NSTEMI Perimyocarditis? Asthma Echo 06/13/2021-EF 55 to 60%. Mild diastolic dysfunction is present impaired relaxation pattern. Right ventricular systolic function is normal. Left and right atrium are normal. No pericardial effusion Cardiac cath 06/14/2021-mild scattered luminal irregularities with diffuse sluggish flow specially in LAD. No obstructive disease identified estimated EF 55 to 60%. Normal LVEDP Plan: Continue aspirin and statin therapy Covid PCR pending Patient seen in conjunction with Dr. Izaguirre who agrees with this plan of care - Patient Problems (1) Chest pain due to myocardial ischemia Current Visit: Yes Status: Acute (2) NSTEMI (non-ST elevated myocardial infarction) Current Visit: Yes Status: Acute Subjective Date of service: 06/15/21 Principal diagnosis: NSTEMI Interval history: Patient resting in bed. Patient denies any complaints of current chest pain Sinus 70s on monitor with no events Objective Vital Signs Temp Pulse Resp BP Pulse Ox 06/15/21 12:00 81 98 06/15/21 11:24 84 16 104/54 97 06/15/21 07:59 98.2 F 89 18 85/45 97 06/15/21 04:24 98.5 F 79 20 101/69 95 06/15/21 01:00 18 98 06/15/21 00:32 71 06/14/21 23:27 98.4 F 81 18 104/51 98 06/14/21 20:11 99.0 F 100 H 18 114/64 98 06/14/21 15:44 98.2 F 98 H 18 120/78 97 - Physical Examination General: No Apparent Distress HEENT: Positive: PERRL, Normocephaly Neck: Positive: trachea midline Cardiac: Positive: Reg Rate and Rhythm Lungs: Positive: Normal Breath Sounds Neuro: Positive: Grossly Intact Abdomen: Positive: Soft Skin: Negative: Rash, Suspicious Lesions, Ulceration Extremities: Present: upper extr. pulses. Absent: edema - Labs and Meds CBC 06/15/21 Range/Units 05:40 Hgb 14.9 (11.8-15.2) gm/dl Hct 46.6 H (35.5-45.6) % Plt Count 193 (140-440) K/mm3 Comprehensive Metabolic Panel 06/15/21 Range/Units 05:40 Sodium 134 L (137-145) mmol/L Potassium 4.1 (3.6-5.0) mmol/L Chloride 99.0 (98-107) mmol/L Carbon Dioxide 21 L (22-30) mmol/L BUN 9 (9-20) mg/dL Creatinine 1.1 (0.8-1.3) mg/dL Glucose 117 H (75-100) mg/dL Calcium 9.7 (8.4-10.2) mg/dL - Imaging and Cardiology Echo: report reviewed Cardiac cath: report reviewed - Telemetry EKG Rhythm: Sinus Rhythm - EKG Sinus rhythms and dysrhythmias: sinus rhythm Myocardial infarction: inferior [place] (acute or rec
[2021-06-16 08:07] VITALS: BP 113/62
[2021-06-16] MEDS: ASPIRIN EC 325 MG TAB PO SCH (09:22)
--- NOTE | 2021-06-16 11:44 | Progress Note ---
Assessment and Plan Patient is a 31-year-old male past medical history of asthma and prediabetes who presents to the ED with complaint of sharp chest pain with diffuse ST elevation not consistent with STEMI NSTEMI Perimyocarditis? Asthma Echo 06/13/2021-EF 55 to 60%. Mild diastolic dysfunction is present impaired relaxation pattern. Right ventricular systolic function is normal. Left and right atrium are normal. No pericardial effusion Cardiac cath 06/14/2021-mild scattered luminal irregularities with diffuse sluggish flow specially in LAD. No obstructive disease identified estimated EF 55 to 60%. Normal LVEDP Plan: Continue aspirin and statin therapy Covid PCR negative Discussed with patient that he should not drive for about a week due to perimyocarditis. Also discussed the patient's importance of medication compliance with aspirin and statin and importance of following up with a hematology technician when he returns. Patient verbalized understanding and agreement Patient cardiac status is stable for discharge Patient seen in conjunction with Dr. Izaguirre who agrees with this plan of care - Patient Problems (1) Chest pain due to myocardial ischemia Current Visit: Yes Status: Acute (2) NSTEMI (non-ST elevated myocardial infarction) Current Visit: Yes Status: Acute Subjective Date of service: 06/16/21 Principal diagnosis: NSTEMI Interval history: Patient resting in bed. Patient denies any complaints of current chest pain Sinus 70s on monitor with no events Objective Vital Signs Temp Pulse Resp BP BP Pulse Ox 06/16/21 08:06 98.7 F 79 18 113/62 98 06/16/21 04:52 98.3 F 80 20 117/70 95 06/16/21 00:02 98.1 F 74 18 129/80 97 06/16/21 00:00 81 06/15/21 22:00 18 98 06/15/21 19:58 98.3 F 97 H 18 109/64 98 06/15/21 15:40 98.4 F 78 16 96/48 98 06/15/21 12:00 81 98 - Physical Examination General: No Apparent Distress HEENT: Positive: PERRL, Normocephaly Neck: Positive: trachea midline Cardiac: Positive: Reg Rate and Rhythm Lungs: Positive: Normal Breath Sounds Neuro: Positive: Grossly Intact Abdomen: Positive: Soft Skin: Negative: Rash, Suspicious Lesions, Ulceration Extremities: Present: upper extr. pulses. Absent: edema - Imaging and Cardiology Echo: report reviewed Cardiac cath: report reviewed - Telemetry EKG Rhythm: Sinus Rhythm - EKG Sinus rhythms and dysrhythmias: sinus rhythm Myocardial infarction: inferior [place] (acute or rec
--- NOTE | 2021-06-16 12:04 | Discharge Summary ---
Providers - Providers Date of Admission: 06/14/21 07:09 Date of discharge: 06/16/21 Attending physician: EVITA RANDALL MD 06/13/21 Consult to Cardiac Rehabilitation [CONS] Routine Reason For Exam: Phase I 06/13/21 23:47 Consult to Physician [CONS] Stat Comment: Consulting Provider: NAOMI HERNANDEZ Physician Instructions: Reason For Exam: NSTEMI Primary care physician: [employer] Hospitalization Reason for admission: NSTEMI Condition: Stable Pertinent studies: Reviewed. Procedures: Left heart catheterization Hospital course: Patient is a 31-year-old male with past medical history of asthma, prediabetes, and morbid obesity who presented with midsternal chest pain that was radiating to his left side, left chest, and left shoulder. He endorses that his pain was worsened with deep breaths. In the ED the patient was evaluated with CT angio chest which was negative for pulmonary embolism, CT angio abdomen/pelvis which was negative for aortic dissection or any acute abdominal process. The patient was found to have an elevated troponin of 0.616. Cardiology was consulted for further management. Patient had a TTE that revealed an EF of 50-60% with mild diastolic dysfunction. Patient underwent left heart cath on 06/14/2021 that revealed "scattered luminal irregularities with diffuse sluggish flow specifically in the LAD. No obstructive disease identified. Estimated EF 55- 60%. Normal LVEDP". The patient will continue with aspirin and statin therapy at the recommendation of cardiology. Patient was evaluated for coronavirus, and he was found to be negative. The patient has been counseled about following with a tank car loader upon his return to [place] (home state). Patient expresses understanding. Patient is medically cleared for discharge. Disposition: 01 HOME / SELF CARE / HOMELESS Final Discharge Diagnosis (Prints w/discharge instructions): NSTEMI, chest pain due to myocardial ischemia, hyperlipidemia, asthma, morbid obesity Time spent for discharge: 45 min Core Measure Documentation - Palliative Care Palliative Care/ Comfort Measures: Not Applicable - Core Measures Any of the following diagnoses?: none Exam - Constitutional Vitals: Temp Pulse Resp BP Pulse Ox 98.7 F 79 18 113/62 98 06/16/21 08:06 06/16/21 08:06 06/16/21 08:06 06/16/21 08:06 06/16/21 08:06 General appearance: Present: no acute distress, well-nourished, obese - EENT Eyes: Present: PERRL, EOM intact ENT: hearing intact, clear oral mucosa, dentition normal - Neck Neck: Present: supple, normal ROM - Respiratory Respiratory effort: normal Respiratory: bilateral: CTA - Cardiovascular Rhythm: regular Heart Sounds: Present: S1 & S2 - Extremities Extremities: no ischemia, pulses intact, pulses symmetrical, No edema, normal temperature, normal color, Full ROM Peripheral Pulses: within normal limits - Abdominal General gastrointestinal: Present: soft, non-tender, non-distended, normal bowel sounds Male genitourinary: Present: deferred - Rectal Rectal Exam: deferred - Integumentary Integumentary: Present: clear, warm, dry - Musculoskeletal Musculoskeletal: strength equal bilaterally - Psychiatric Psychiatric: appropriate mood/affect, intact judgment & insight, memory intact, cooperative - Neurologic Neurologic: CNII-XII intact, moves all extremities - Allied Health Allied health notes reviewed: nursing Plan Activity: no restrictions Diet: low salt Additional Instructions: Patient is a 31-year-old male with past medical history of asthma, prediabetes, and morbid obesity who presented with midsternal chest pain that was radiating to his left side, left chest, and left shoulder. He endorses that his pain was worsened with deep breaths. In the ED the patient was evaluated with CT angio chest which was negative for pulmonary embolism, CT angio abdomen/pelvis which was negative for aortic dissection or any acute abdominal process. The patient was found to have an elevated troponin of 0.616. Cardiology was consulted for further management. Patient had a TTE that revealed an EF of 50-60% with mild diastolic dysfunction. Patient underwent left heart cath on 06/14/2021 that revealed "scattered luminal irregularities with diffuse sluggish flow specifically in the LAD. No obstructive disease identified. Estimated EF 55-60%. Normal LVEDP". The patient will continue with aspirin and statin therapy at the recommendation of cardiology. Patient was evaluated for coronavirus, and he was found to be negative. The patient has been counseled about following with a tank car loader upon his return to [place] (home state). Patient expresses understanding. Patient is medically cleared for discharge. Care Plan Goals: Patient is medically cleared for discharge. Assessment: Patient is a 31-year-old male with past medical history of asthma, prediabetes, and morbid obesity who presented with midsternal chest pain that was radiating to his left side, left chest, and left shoulder. He endorses that his pain was worsened with deep breaths. In the ED the patient was evaluated with CT angio chest which was negative for pulmonary embolism, CT angio abdomen/pelvis which was negative for aortic dissection or any acute abdominal process. The patient was found to have an elevated troponin of 0.616. Cardiology was consulted for further management. Patient had a TTE that revealed an EF of 50-60% with mild diastolic dysfunction. Patient underwent left heart cath on 06/14/2021 that revealed "scattered luminal irregularities with diffuse sluggish flow specifically in the LAD. No obstructive disease identified. Estimated EF 55- 60%. Normal LVEDP". The patient will continue with aspirin and statin therapy at the recommendation of cardiology. Patient was evaluated for coronavirus, and he was found to be negative. The patient has been counseled about following with a tank car loader upon his return to [place] (home state). Patient expresses understanding. Patient is medically cleared for discharge. Follow up with: PRIMARY CARE, [Primary Care Provider] - 3-5 Days Forms: Work/School Release Form Prescriptions: AtorvaSTATin [Lipitor] 80 mg PO QHS #30 tablet
== END 2021-06-16 14:45 | disposition home or self-care (01) | DRG 282 ==
LOC: ED 20:20 → 4A 23:48 → OBSVTOIN 06-14 07:09
PROVIDERS: ADMIT Internal Medicine Geriatric Medicine; ATTEND Student in an Organized Health Care Education/Training Program
PROC: 4A023N7 Measurement of Cardiac Sampling and Pressure, Left Heart, Percutaneous Approach (ICD-10-PCS; principal; 2021-06-14)
PROC: B2111ZZ Fluoroscopy of Multiple Coronary Arteries using Low Osmolar Contrast (ICD-10-PCS; 2021-06-14)
DX: I21.4 Non-ST elevation (NSTEMI) myocardial infarction (principal); E78.2 Mixed hyperlipidemia; J45.909 Unspecified asthma, uncomplicated; Z20.822 Contact with and (suspected) exposure to COVID-19; E78.5 Hyperlipidemia, unspecified; E66.01 Morbid (severe) obesity due to excess calories; Z68.35 Body mass index [BMI] 35.0-35.9, adult; Z88.0 Allergy status to penicillin
CPT/HCPCS: 36415; 71045; 71275; 74174; 80048; 80061; 80076; 80307; 81001; 83690; 83735; 83880; 84484; 85007; 85014; 85018; 85025; 85049; 85379; 85520; 85610; 85730; 93005; 93010; 93306; 93458; G0378; J1815; J3490; C1887; C1894; C8929; J1644; J2250; J2270; J3010; J7040; Q9967; U0003